=== PATIENT | male | born 1955 | race Caucasian/White ===

== ENCOUNTER 2021-10-11 12:52 | Inpatient (IN) ==
[2021-10-11] MEDS ORDERED: Ipratropium/Albuterol Neb 3 ML IH ONE (13:20)
[2021-10-11 14:11] LABS: BUN/Creatinine Ratio 20 (6-26); Blood Urea Nitrogen 16 mg/dL (8-23); Calcium 9.1 mg/dL (8.6-10.3); Carbon Dioxide 27 mEq/L (23-29); Chloride 89 mEq/L (98-107); Glucose 136 mg/dL (70-105); Osmolality,Calculated 271 (280-300); Potassium 3.3 mEq/L (3.5-5.1); Sodium 129 mEq/L (136-145); eGFR For African Americans > 60 (> 60); eGFR For Non-African Americans > 60 (> 60)
[2021-10-11 14:12] LABS: Troponin I < 0.03 ng/mL (< 0.04)
[2021-10-11 14:23] LABS: Basophils % 0.3 %; Hematocrit 42.9 % (37.5-50.1); Hemoglobin 14.6 g/dL (12.9-16.9); Immature Granulocytes % 0.4 % (0-4); Lymphocytes # 0.6 K/mcL (0.6-4.6); Lymphocytes % 5.4 %; Mean Corpuscular Hemoglobin 28.9 pg (28.0-33.3); Mean Platelet Volume 11.7 fL (9.4-12.4); Monocytes # 0.7 K/mcL (0.0-1.3); Monocytes % 6.4 %; Neutrophils # 9.8 K/mcL (1.6-8.9); Platelet Count 193 K/mcL (140-400); Red Blood Count 5.05 M/mcL (4.19-5.50); Red Cell Distribution Width 13.3 % (11.5-14.5); Segmented Neutrophils % 87.5 %; White Blood Count 11.2 K/mcL (4.3-11.1)
[2021-10-11 14:36] LABS: Influenza A PCR Negative (Negative); Influenza B PCR Negative (Negative); Resp. Syncytial Virus PCR Positive (Negative)
[2021-10-11 14:56] LABS: SARS-CoV-2 by PCR (In House) Negative (Negative)
[2021-10-11] MEDS ORDERED: Ondansetron ODT 4 MG TAB.RAPDIS SL PRN (17:21)
[2021-10-11] MEDS ORDERED: Nicotine 2 MG GUM BC PRN (17:57)
[2021-10-11] MEDS: Insulin LISPRO 300 UNITS/3 ML VIAL SUBQ SCH (18:00)
[2021-10-11] MEDS: Azithromycin 250 MG TABLET PO SCH (18:03)
[2021-10-11] MEDS: Ipratropium/Albuterol Neb 3 ML IH SCH ×2 (20:52→23:38)
[2021-10-11 21:38] LABS: C-Reactive Protein 88 mg/L (Less than 10)
[2021-10-11] MEDS: methylPREDNISolone 125 MG/2 ML VIAL IVP SCH (23:56)
[2021-10-12 01:32] LABS: Basophils % 0.4 %; Eosinophils # 0.1 K/mcL (0.0-0.6); Hematocrit 43.4 % (37.5-50.1); Hemoglobin 13.8 g/dL (12.9-16.9); Immature Granulocytes % 0.4 % (0-4); Lymphocytes # 1.3 K/mcL (0.6-4.6); Lymphocytes % 12.8 %; Mean Corpuscular HGB Conc 31.8 g/dL (31.6-35.5); Mean Corpuscular Hemoglobin 28.3 pg (28.0-33.3); Mean Corpuscular Volume 88.9 fL (83.0-100.0); Mean Platelet Volume 11.2 fL (9.4-12.4); Monocytes # 0.8 K/mcL (0.0-1.3); Neutrophils # 7.7 K/mcL (1.6-8.9); Platelet Count 148 K/mcL (140-400); Red Blood Count 4.88 M/mcL (4.19-5.50); Red Cell Distribution Width 13.7 % (11.5-14.5); Segmented Neutrophils % 77.4 %
[2021-10-12 02:07] LABS: BUN/Creatinine Ratio 22 (6-26); Blood Urea Nitrogen 18 mg/dL (8-23); Calcium 8.5 mg/dL (8.6-10.3); Carbon Dioxide 24 mEq/L (23-29); Chloride 91 mEq/L (98-107); Glucose 115 mg/dL (70-105); Osmolality,Calculated 269 (280-300); Potassium 3.6 mEq/L (3.5-5.1); Sodium 128 mEq/L (136-145); eGFR For African Americans > 60 (> 60); eGFR For Non-African Americans > 60 (> 60)
[2021-10-12] MEDS: Ipratropium/Albuterol Neb 3 ML IH SCH ×6 (04:33→23:36)
[2021-10-12] MEDS: methylPREDNISolone 125 MG/2 ML VIAL IVP SCH ×3 (08:43→23:05)
[2021-10-12] MEDS: Aspirin Enteric Coated 81 MG Tablet PO SCH (08:44)
[2021-10-12] MEDS: Metoprolol XL (24 HR) Succ 25 MG TAB.ER.24H PO SCH (08:44)
[2021-10-12] MEDS: Multivit/Ca/Min/Fe/FA 1 TAB TABLET PO SCH (08:44)
[2021-10-12] MEDS: Losartan/HCTZ 50-12.5 TABLET PO SCH (08:52)
[2021-10-12] MEDS: Insulin LISPRO 300 UNITS/3 ML VIAL SUBQ SCH ×3 (08:52→18:22)
[2021-10-12] MEDS: Menthol 1 EACH LOZENGE PO PRN ×2 (11:36→18:25)
[2021-10-12] MEDS: *HR* Heparin 5,000 UNIT/ML VIAL SQ SCH ×2 (18:20→20:12)
[2021-10-12] MEDS: Azithromycin 250 MG TABLET PO SCH (18:21)
[2021-10-13 01:18] LABS: Hematocrit 40.8 % (37.5-50.1); Hemoglobin 13.1 g/dL (12.9-16.9); Mean Corpuscular HGB Conc 32.1 g/dL (31.6-35.5); Mean Corpuscular Hemoglobin 27.8 pg (28.0-33.3); Mean Corpuscular Volume 86.4 fL (83.0-100.0); Platelet Count 165 K/mcL (140-400); Red Blood Count 4.72 M/mcL (4.19-5.50); Red Cell Distribution Width 13.4 % (11.5-14.5); White Blood Count 13.1 K/mcL (4.3-11.1)
[2021-10-13 01:46] LABS: BUN/Creatinine Ratio 27 (6-26); Blood Urea Nitrogen 22 mg/dL (8-23); Calcium 8.8 mg/dL (8.6-10.3); Carbon Dioxide 28 mEq/L (23-29); Chloride 91 mEq/L (98-107); Glucose 199 mg/dL (70-105); Osmolality,Calculated 279 (280-300); Potassium 3.6 mEq/L (3.5-5.1); Sodium 130 mEq/L (136-145); eGFR For African Americans > 60 (> 60); eGFR For Non-African Americans > 60 (> 60)
[2021-10-13] MEDS: Ipratropium/Albuterol Neb 3 ML IH SCH ×6 (03:54→23:28)
[2021-10-13] MEDS: *HR* Heparin 5,000 UNIT/ML VIAL SQ SCH ×3 (05:11→20:57)
[2021-10-13] MEDS: Multivit/Ca/Min/Fe/FA 1 TAB TABLET PO SCH (08:50)
[2021-10-13] MEDS: Aspirin Enteric Coated 81 MG Tablet PO SCH (08:50)
[2021-10-13] MEDS: Losartan/HCTZ 50-12.5 TABLET PO SCH (08:50)
[2021-10-13] MEDS: methylPREDNISolone 125 MG/2 ML VIAL IVP SCH ×3 (08:50→18:11)
[2021-10-13] MEDS: Metoprolol XL (24 HR) Succ 25 MG TAB.ER.24H PO SCH (08:50)
[2021-10-13] MEDS: Insulin LISPRO 300 UNITS/3 ML VIAL SUBQ SCH ×3 (08:51→17:33)
[2021-10-13] MEDS: Azithromycin 250 MG TABLET PO SCH (17:31)
[2021-10-14] MEDS: Ipratropium/Albuterol Neb 3 ML IH SCH ×3 (03:54→11:26)
[2021-10-14] MEDS: methylPREDNISolone 125 MG/2 ML VIAL IVP SCH (04:50)
[2021-10-14] MEDS: *HR* Heparin 5,000 UNIT/ML VIAL SQ SCH (04:51)
[2021-10-14] MEDS: Losartan/HCTZ 50-12.5 TABLET PO SCH (09:01)
[2021-10-14] MEDS: Metoprolol XL (24 HR) Succ 25 MG TAB.ER.24H PO SCH (09:01)
[2021-10-14] MEDS: Aspirin Enteric Coated 81 MG Tablet PO SCH (09:01)
[2021-10-14] MEDS: Multivit/Ca/Min/Fe/FA 1 TAB TABLET PO SCH (09:01)
[2021-10-14] MEDS: Insulin LISPRO 300 UNITS/3 ML VIAL SUBQ SCH (09:02)
[2021-10-14 09:20] LABS: BUN/Creatinine Ratio 26 (6-26); Blood Urea Nitrogen 20 mg/dL (8-23); Calcium 8.8 mg/dL (8.6-10.3); Carbon Dioxide 31 mEq/L (23-29); Chloride 93 mEq/L (98-107); Glucose 205 mg/dL (70-105); Osmolality,Calculated 283 (280-300); Sodium 132 mEq/L (136-145); eGFR For African Americans > 60 (> 60); eGFR For Non-African Americans > 60 (> 60)
[2021-10-14 11:05] VITALS: BP 122/73; PULSE 73; TEMP 97.6; O2SAT 93
== END 2021-10-14 13:40 | disposition home or self-care (01) | DRG 190 ==
LOC: 3BNU 12:52 → EMEROOARM 12:52 → SUATTDRO 15:59 → 3BNU 16:49
PROVIDERS: ADMIT Pharmacist; ATTEND Internal Medicine